=== PATIENT | male | born 1990 | race Hispanic/Latino ===

== ENCOUNTER 2017-06-13 16:06 | Emergency (ER) | payer SELFPAY ==
[~2017-06-13] VITALS: Ht 172.7 cm; Wt 58.0 kg
[2017-06-13] MEDS ORDERED: CIPROFLOXACN750 MG PO (17:11)
[2017-06-13] MEDS ORDERED: LORTAB 5-325 MG1 TAB PO (17:12)
[2017-06-13 17:39] VITALS: BP 159/67
== END 2017-06-13 17:53 | disposition home or self-care (01) | DRG 605 ==
LOC: ED 16:06
PROC: 0HQGXZZ Repair Left Hand Skin, External Approach (ICD-10-PCS; principal; 2017-06-13)
PROC: 2W3KX1Z Immobilization of Left Finger using Splint (ICD-10-PCS; 2017-06-13)
DX: S61.211A Laceration without foreign body of left index finger without damage to nail, initial encounter (principal); S66.321A Laceration of extensor muscle, fascia and tendon of left index finger at wrist and hand level, initial encounter; W27.0XXA Contact with workbench tool, initial encounter; Y93.H2 Activity, gardening and landscaping; Y92.007 Garden or yard of unspecified non-institutional (private) residence as the place of occurrence of the external cause